=== PATIENT | male | born 1975 | race Caucasian/White ===

== ENCOUNTER 2020-04-04 10:45 | Emergency (ER) | payer OTHER, SELFPAY ==
[2020-04-04 11:01] VITALS: BP 147/96; PULSE 109; RESP 20; TEMP 37.9; O2SAT 97
--- NOTE | 2020-04-04 11:50 | ED.SKABFB ---
HPI - Skin/Abscess/Foreign Bdy General Chief complaint: Wound/Laceration Stated complaint: abcess Time Seen by Provider: 04/04/20 11:10 Source: patient and RN notes reviewed Mode of arrival: ambulatory Limitations: no limitations History of Present Illness HPI narrative: Patient presents today complaining of a large abscess to his left inner buttock x5 days. States it has been worsening since onset. Reports this is a recurrent issue for him. He has had several abscesses in the buttock area lanced in the past. He has seen his PCP for this in the past and has been referred to GI. He recently had a colonoscopy that was clear. They are talking about referral to general surgery in the future. He was recently on Augmentin in November and Bactrim in December for the same complaints. He has recently been using Prid Salve, apple cider vinegar, Epson salt soaks, mupirocin ointment, and Boil-Luis, which help to some degree. He called [facility] yesterday asking if we may help jose de jesus his abscess and stated if it didn't rupture on its own last night he would come in today for evaluation. States he was running a fever of 100.5 last night, for which he took Advil, which did provide relief. Related Data Home Medications Medication Instructions Recorded Confirmed mupirocin 1 applic TOPICAL BID 04/04/20 04/04/20 Allergies Allergy/AdvReac Type Severity Reaction Status Date / Time No Known Allergies Allergy Verified 04/04/20 11:04 Review of Systems Review of Systems: Narrative: CONSTITUTIONAL: Denies body aches, fever, chills, or sweats. EYES: Denies visual changes, redness, or discharge. ENT: Denies rhinorrhea, congestion, sore throat, or otalgia. CARDIOVASCULAR: Denies chest pain, palpitations, or edema. RESPIRATORY: Denies cough or dyspnea. GASTROINTESTINAL: Denies abdominal pain, nausea, vomiting, or diarrhea. GENITOURINARY: Denies dysuria or hematuria. SKIN: Denies rash, itching, or wounds.+ Abscess to left buttock MUSCULOSKELETAL: Denies back pain, joint pain, or myalgia. NEUROLOGIC: Denies headache, numbness, tingling, or weakness. PSYCH: Denies depression or anxiety. [facility] Past Medical History Medical History (Updated 04/04/20 @ 12:05 by Radha Gu, [employer]ER, ) History of abscess of skin and subcutaneous tissue Hyperthyroidism Family History Family History (Updated 01/31/14 @ 07:13 by DOCTOR UNKNOWN) Mother Hypertension Social History Social History Alcohol intake: current Comments At time of signature, I have reviewed and agree with nursing past medical, surgical, social and family history unless otherwise noted. Please see nursing chart for further information. There is no relevant family history pertinent to the presenting complaint Exam Narrative: Exam Narrative: GENERAL: Well-appearing, well-nourished, and in no acute distress. HEAD: Normocephalic, atraumatic. EYES: EOMI. No redness or drainage. Conjunctivae normal. ENT: Mucous membranes pink and moist. NECK: Normal AROM. CHEST: No respiratory distress. EXTREMITIES: Normal range of motion. No edema. SKIN: Warm, dry, no rash. Capillary refill normal. Normal skin turgor.4cm fluctuant lesion to left lower inner buttock area with surrounding erythema and induration. Moderately tender to palpation. NEURO: No focal deficits. Alert and oriented x3. Gait steady. PSYCH: Normal affect. No signs of depression or anxiety. Course Vital Signs Vital signs: Vital Signs Temperature 100.2 F H 04/04/20 11:01 Pulse Rate 109 H 04/04/20 11:01 Respiratory Rate 20 04/04/20 11:01 Blood Pressure 147/96 H 04/04/20 11:01 Pulse Oximetry 97 04/04/20 11:01 Temperature 100.2 F H 04/04/20 11:01 Pulse Rate 109 H 04/04/20 11:01 Respiratory Rate 20 04/04/20 11:01 Blood Pressure 147/96 H 04/04/20 11:01 Pulse Oximetry 97 04/04/20 11:01 Reviewed. Pt has been instructed to follow up with his PCP regarding his elevated blood pressure today.
[2020-04-04 12:12] VITALS: BP 147/94; PULSE 126; RESP 20; TEMP 38.2; O2SAT 97
== END 2020-04-04 12:12 | disposition home or self-care (01) ==
PROVIDERS: Emergency Provider Nurse Practitioner
DX: L02.31 Cutaneous abscess of buttock (principal); L03.317 Cellulitis of buttock; E05.90 Thyrotoxicosis, unspecified without thyrotoxic crisis or storm
CPT/HCPCS: 10061; 99203; G0463